=== PATIENT | male | born 1980 | race Caucasian/White ===

== ENCOUNTER 2016-12-20 04:25 | Emergency (ER) | payer SELFPAY ==
[~2016-12-20 04:25] MED LIST: CIPROFLOXACIN500 MG PO; FLO4 PO; LIPI10 PO; METFORMIN HCL500 MG PO; NOR10T PO; TORADOL10 MG PO; ZES10 PO
[2016-12-20 06:09] LABS: microscopic required? YES; urine erythrocyte TRACE (NEGATIVE)
[2016-12-20 06:18] LABS: BASOPHIL % 0.1 % (0-2); PLATELET COUNT 258 x10^3mcL (130-400); RED CELL DISTRIBUTION WIDTH 12.7 % (11.5-14.5)
[2016-12-20 06:20] LABS: CALCIUM 8.7 mg/dL (8.5-10.1); CARBON DIOXIDE 28.5 mmol/L (21-32); CHLORIDE SERUM 102 mmol/L (98-107); CREATININE SERUM 1.2 mg/dL (0.7-1.3); GFR1 > 60 mL/min; GLUCOSE SERUM 360 mg/dL (74-106); POTASSIUM SERUM 4.1 mmol/L (3.5-5.1); SODIUM SERUM 139 mmol/L (136-145)
[2016-12-20 08:16] VITALS: BP 135/94
== END 2016-12-20 08:16 | disposition home or self-care (01) ==
LOC: ED 04:25
PROVIDERS: Emergency Medicine
DX: N20.1 Calculus of ureter (principal); R03.0 Elevated blood-pressure reading, without diagnosis of hypertension; E11.9 Type 2 diabetes mellitus without complications; Z87.442 Personal history of urinary calculi; Z79.84 Long term (current) use of oral hypoglycemic drugs; Z96.0 Presence of urogenital implants
CPT/HCPCS: J1885; J2270; J2405; J7030; Q0092

== ENCOUNTER 2016-12-31 00:29 | Emergency (ER) | payer SELFPAY ==
[2016-12-31 01:13] LABS: UA SPECIFIC GRAVITY >=1.030 (1.005-1.035); microscopic required? YES; urine erythrocyte 1+ (NEGATIVE)
[2016-12-31 01:14] LABS: BASOPHIL % 0.4 % (0-2); PLATELET COUNT 284 x10^3mcL (130-400); RED CELL DISTRIBUTION WIDTH 12.6 % (11.5-14.5)
[2016-12-31 01:24] LABS: CARBON DIOXIDE 26.7 mmol/L (21-32); CHLORIDE SERUM 101 mmol/L (98-107); CREATININE SERUM 1.3 mg/dL (0.7-1.3); GFR1 > 60 mL/min; GLUCOSE SERUM 278 mg/dL (74-106); SODIUM SERUM 139 mmol/L (136-145)
[2016-12-31 01:29] LABS: ALBUMIN 3.5 g/dL (3.4-5.0); ALKALINE PHOSPHATASE 75 U/L (46-116); ALT/SGPT 52 U/L (16-63); AST/SGOT 20 U/L (15-37); BILIRUBIN TOTAL 0.41 mg/dL (0.20-1.00); TOTAL PROTEIN, SERUM 7.9 g/dL (6.4-8.2)
[2016-12-31 04:17] VITALS: BP 131/85
== END 2016-12-31 04:18 | disposition home or self-care (01) ==
LOC: ED 00:29
PROVIDERS: Emergency Medicine
DX: N23 Unspecified renal colic (principal); E11.9 Type 2 diabetes mellitus without complications; Z87.442 Personal history of urinary calculi
CPT/HCPCS: 82962; A4570; J1170; J1815; J7030; Q0092; Q0162